=== PATIENT | female | born 1995 | race Caucasian/White ===

== ENCOUNTER 2018-11-08 20:45 | Emergency (ER) | payer SELFPAY ==
--- NOTE | 2018-11-09 00:15 | PDOC ---
Attending Attestation - Resident Resident Name: Rodney Alcantara - ED Attending Attestation I have performed the following: I have examined & evaluated the patient, The case was reviewed & discussed with the resident, I agree w/resident's findings & plan, Exceptions are as noted - HPI HPI: 11/09/18 00:11 23y F no pmhx presents with complaint of nasal congestion, cogh produtive of whitish sputum, body aches, fever since yesterday . associated with sob and sore throat. no sick contacts but pt works as a personnel recruiter in the [employer] no recent travel vacciontions UTD GENERAL: The patient is awake, alert, and fully oriented, Nontoxic - in no acute distress. HEAD: Normocephalic, atraumatic. EYES: extraocular movements intact, sclera anicteric, conjunctiva clear. ENT: Normal voice, Moist mucous membranes scant nasla congestion NECK: Normal range of motion, supple LUNGS: Breath sounds equal, clear to auscultation bilaterally. No wheezes, no rhonchi, no rales. HEART: slightly tachcyardic, normal S1 and S2 without murmur, rub or gallop. ABDOMEN: Soft, nontender, normoactive bowel sounds. No guarding, no rebound. . No CVA tenderness EXTREMITIES: Normal range of motion, no edema. No clubbing or cyanosis. No cords, erythema, or tenderness. NEUROLOGICAL: No facial assymetry, Normal speech, PSYCH: Normal mood, normal affect. SKIN: hot to touch, Dry, normal turgor, Suspect flulike syndrome versus pneumonia The patient's chest x-ray is negative. The patient influenza is positive as the patient is in the we'll treat the patient with Tamiflu. We'll also give the patient Tylenol for her fever as well as some DuoNeb's. Anticipated discharge with outpatient management. The patient came in during his down time of our computer system this chart was documented after the computers came bqack up.
--- NOTE | 2018-11-09 00:19 | PDOC ---
History of Present Illness - General Time Seen by Provider: 11/09/18 00:09 - History of Present Illness Initial Comments: 11/09/18 00:14 23f presents with cough, shortness of breath and muscle aches and nasal congestion for 2 days. Sob no sore throat. subjective fever. Works in the [employer], lots of possible sick contacts. Got her flu shot this year. 11/09/18 00:15 11/09/18 00:15 Past History - Past Medical History Home Medications: Ambulatory Orders Oseltamivir Phosphate [Tamiflu -] 75 mg PO BID #10 capsule 11/09/18 Oseltamivir Phosphate [Tamiflu -] 75 mg PO BID #10 capsule 11/09/18 Review of Systems - Review of Systems Able to Perform ROS?: Yes Is the patient limited Moroccan proficient: No Constitutional: Yes: See HPI HEENTM: No: Symptoms Reported Respiratory: Yes: See HPI Cardiac (ROS): No: Symptoms Reported ABD/GI: No: Symptoms Reported : No: Symptoms Reported Musculoskeletal: Yes: See HPI Integumentary: No: Symptoms Reported Neurological: No: Symptoms reported *Physical Exam - Physical Exam General Appearance: Yes: Nourished, Appropriately Dressed, Moderate Distress HEENT: positive: Other (flushed face, nasal congestion) Respiratory/Chest: positive: Lungs Clear, Normal Breath Sounds. negative: Chest Tender, Respiratory Distress, Stridor, Wheezing Cardiovascular: positive: Regular Rhythm, Regular Rate, S1, S2 Gastrointestinal/Abdominal: positive: Normal Bowel Sounds, Flat, Soft. negative : Tender Integumentary: positive: Normal Color, Dry, Warm Neurologic: positive: Fully Oriented, Alert, Normal Mood/Affect, Normal Response , Motor Strength 5/5 Medical Decision Making - Medical Decision Making 11/09/18 00:16 Flu swab positive. Xray negative for acute processes. Giving patient tamiflu, duonebs, tylenol and prescription to orange picking supervisor. 11/09/18 00:19 *DC/Admit/Observation/Transfer Diagnosis at time of Disposition: Influenza A - Discharge Dispostion Disposition: HOME Condition at time of disposition: Guarded Decision to Admit order: No - Prescriptions Prescriptions: Oseltamivir Phosphate [Tamiflu -] 75 mg PO BID #10 capsule - Referrals - Patient Instructions Printed Discharge Instructions: Influenza, How to Avoid a Cold or Flu Additional Instructions: orange picking supervisor prescription in the pharmacy. Come back to the emergency department for any new, worsening or concerning symptoms. Avoid contact with children and the elderly during treatment of your flu. - Post Discharge Activity
[2018-11-09] MEDS ORDERED: OSELTAMIVIR PHOSPHATE 75 MG CAPSULE ONE ×2 (00:54→00:57)
== END 2018-11-09 01:05 | disposition home or self-care (01) ==
LOC: JER 20:45
DX: J09.X2 Influenza due to identified novel influenza A virus with other respiratory manifestations (principal)
CPT/HCPCS: 71046-TC-FY; 87804; 99281-25